=== PATIENT | male | born 1960 | race Two or more races ===

== ENCOUNTER 2018-01-12 00:32 | Emergency (ER) | payer MEDICARE, MEDICAID ==
[2018-01-12] MEDS ORDERED: NS 0.9% 1000 ML* 1,000 ML IV ONE (00:52)
[2018-01-12] MEDS ORDERED: Metoclopramide IV* 5 MG/ML 2 ML VIAL IV SLOW PU ONE (00:54)
[2018-01-12] MEDS ORDERED: Morphine VIAL* 10 MG/ML 1 ML VIAL IV ONE (00:55)
[2018-01-12] MEDS ORDERED: Hydrocortisone INJ* 100 MG VIAL IV ONE (00:56)
[2018-01-12 01:14] LABS: Hematocrit 37 % (42-52); Hemoglobin 11.4 g/dl (14.0-18.0); Mean Corpuscular HGB Conc 31 g/dl (31-36); Mean Corpuscular Hemoglobin 25 pg (27-31); Mean Corpuscular Volume 81 fL (80-94); Red Cell Distribution Width 19 % (10.5-15); White Blood Count 14.8 10^3/ul (3.5-10.8)
[2018-01-12 01:20] LABS: INR 1.02 (0.77-1.02)
[2018-01-12 01:30] LABS: EGFR Non-African American 44.3 (>60)
[2018-01-12 01:33] LABS: ABS Basophils 0.2 10^3/ul (0-0.2); ABS Eosinophils 0 10^3/ul (0-0.6); ABS Lymphocytes 1.1 10^3/ul (1.0-4.8); ABS Monocytes 0 10^3/ul (0-0.8); ABS Neutrophils 13.5 10^3/ul (1.5-7.7); ABS Nucleated RBC 0 10^3/ul; Mean Platelet Volume 9.7 um3 (7.4-10.4); Platelet Count 162 10^3/ul (150-450)
[2018-01-12 01:39] LABS: ABS Basophils 0.3 10^3/ul (0-0.2); Monocytes % 0 % (0-7)
--- NOTE | 2018-01-12 02:51 | ED ---
Abdominal Pain/Male - HPI Summary HPI Summary: This is jess Matsonin documenting for attending Dr. Chance Campo MD. A 81 y/o male presents to ED c/o abdominal pain reaching 8/10 in severity. As per triage, "Pt in with c/o n/v abd cramps. reported that pt was vomiting blood after pepto. pt has hx of kidney transplant in 2014". According to the patient' s daughter (translate), the patient has been sick for the past week with diarrhea (yellowish) and stomach cramps (abdominal pain). They just had returned yesterday from [place]. Pt denies any fever, however has vomiting. It was noted that the patient's vomiting episode 20 minutes ago had lots of blood in it. Patient had a transplant in 2014 of a kidney. Patient is currently on several medications. - History of Current Complaint Chief Complaint: EDNauseaVomitDiarrh Stated Complaint: VOMITING BLOOD Time Seen by Provider: 01/12/18 00:39 Hx Obtained From: Patient Onset/Duration: Sudden Onset, Lasting Weeks - 1 week, Still Present Timing: Constant Severity Initially: Severe Severity Currently: Severe Pain Intensity: 8 Pain Scale Used: 0-10 Numeric Radiates: No Character: Cramping Aggravating Factor(s): Nothing Alleviating Factor(s): Nothing Associated Signs And Symptoms: Positive: Vomiting, Diarrhea. Negative: Fever - Allergies/Home Medications Allergies/Adverse Reactions: Allergies Allergy/AdvReac Type Severity Reaction Status Date / Time No Known Allergies Allergy Verified 10/11/13 10:48 PMH/Surg Hx/FS Hx/Imm Hx Cardiovascular History: Reports: Hx Hypertension, Other Cardiovascular Problems/ Disorders - HTN Respiratory History: Reports: Other Respiratory Problems/Disorders - SOB occasionally, MD ordering test r/t chronic chest infiltrates GI History: Reports: Other GI Disorders - peritoneal dialysis History: Reports: Hx Chronic Renal Failure, Hx Dialysis - pt is aneuric, Hx Renal Disease - Pt on peritoneal dialysis 4x daily, Other Problems/Disorders - PT ON DIALYSIS HX OF GLOMERULONEPHRITIS - Surgical History Surgery Procedure, Year, and Place: Several surgeries involving peritoneal dialysis access, Infectious Disease History: No Infectious Disease History: Reports: Traveled Outside the [place] in Last 30 Days - [place] - Family History Known Family History: Negative: Diabetes - Social History Alcohol Use: None Substance Use Type: Reports: None Smoking Status (MU): Former Smoker Review of Systems Negative: Fever Positive: Abdominal Pain, Vomiting, Diarrhea All Other Systems Reviewed And Are Negative: Yes Physical Exam - Summary Physical Exam Summary: VITAL SIGNS: Reviewed. GENERAL: Patient is a well-developed and nourished male who is lying comfortable in the stretcher. Patient is not in any acute respiratory distress. HEAD AND FACE: No signs of trauma. No ecchymosis, hematomas or skull depressions. No sinus tenderness. EYES: PERRLA, EOMI x 2, No injected conjunctiva, no nystagmus. EARS: Hearing grossly intact. Ear canals and tympanic membranes are within normal limits. MOUTH: Oropharynx within normal limits. NECK: Supple, trachea is midline, no adenopathy, no JVD, no carotid bruit, no c- spine tenderness, neck with full ROM. CHEST: Symmetric, no tenderness at palpation LUNGS: Clear to auscultation bilaterally. No wheezing or crackles. CVS: Regular rate and rhythm, S1 and S2 present, no murmurs or gallops appreciated. ABDOMEN: Soft, no rebound no guarding, and no masses palpated. Abdomen is distended with diffuse tenderness. Hyperactive bowel sounds. EXTREMITIES: FROM in all major joints, no edema, no cyanosis or clubbing. NEURO: Alert and oriented x 3. No acute neurological deficits. Speech is normal and follows commands. SKIN: Dry and warm Triage Information Reviewed: Yes Vital Signs On Initial Exam: Initial Vitals Temp Pulse Resp BP Pulse Ox 97.1 F 82 20 149/66 95 01/12/18 00:34 01/12/18 00:34 01/12/18 00:34 01/12/18 00:34 01/12/18 00:34 Vital Signs Reviewed: Yes Diagnostics - Vital Signs Vital Signs Temp Pulse Resp BP Pulse Ox 01/12/18 02:02 20 01/12/18 00:34 97.1 F 82 20 149/66 95 - Laboratory Lab Results: Lab Results 01/12/18 01/12/18 01/12/18 Range/Units 00:59 00:59 00:59 WBC 14.8 H (3.5-10.8) 10^3/ul RBC 4.50 (4.00-5.40) 10^6/ul Hgb 11.4 L (14.0-18.0) g/dl Hct 37 L (42-52) % MCV 81 (80-94) fL MCH 25 L (27-31) pg MCHC 31 (31-36) g/dl RDW 19 H (10.5-15) % Plt Count 162 (150-450) 10^3/ul MPV 9.7 (7.4-10.4) um3 Neut % (Auto) Not Reportable Lymph % (Auto) Not Reportable [place] % (Auto) Not Reportable Eos % (Auto) Not Reportable Baso % (Auto) Not Reportable Absolute Neuts (auto) 13.5 H (1.5-7.7) 10^3/ul Absolute Lymphs (auto) 1.1 (1.0-4.8) 10^3/ul Absolute Monos (auto) 0 (0-0.8) 10^3/ul Absolute Eos (auto) 0 (0-0.6) 10^3/ul Absolute Basos (auto) 0.2 (0-0.2) 10^3/ul Absolute Nucleated RBC 0 10^3/ul Immature Gran % 31 H (0-9) % Neutrophils % 61 (38-83) % Band Neutrophils % 30 H (0-8) % Lymphocytes % 5 L (25-47) % Reactive Lymphs % 1 (0-6) % Monocytes % 0 (0-7) % Eosinophils % 0 (0-6) % Basophils % 2 (0-2) % Myelocytes % 1 (0-1) % Nucleated RBC % Not Reportable Abs Neuts (Manual) 9.0 H (1.5-7.7) 10^3/ul Abs Lymphs (Manual) 0.7 L (1.0-4.8) 10^3/ul Abs Monocytes (Manual) 0 (0-0.8) 10^3/ul Absolute Eos (Manual) 0 (0-0.6) 10^3/ul Abs Basophils (Manual) 0.3 H (0-0.2) 10^3/ul Normal RBC Morphology Not Reportable Anisocytosis 1+ INR (Anticoag Therapy) 1.02 (0.77-1.02) APTT 27.2 (26.0-36.3) seconds Sodium 140 (135-145) mmol/L Potassium 3.8 (3.5-5.0) mmol/L Chloride 111 (101-111) mmol/L Carbon Dioxide 20 L (22-32) mmol/L Anion Gap 9 (2-11) mmol/L BUN 27 H (6-24) mg/dL Creatinine 1.62 H (0.67-1.17) mg/dL Est GFR ( Amer) 53.6 (>60) Est GFR (Non-Af Amer) 44.3 (>60) BUN/Creatinine Ratio 16.7 (8-20) Glucose 128 H (70-100) mg/dL Lactic Acid (0.5-2.0) mmol/L Calcium 9.3 (8.6-10.3) mg/dL Magnesium 2.0 (1.9-2.7) mg/dL Total Bilirubin 0.40 (0.2-1.0) mg/dL AST 15 (13-39) U/L ALT 27 (7-52) U/L Alkaline Phosphatase 59 (34-104) U/L C-Reactive Protein 2.22 (<8.01) mg/L Total Protein 6.2 L (6.4-8.9) g/dL Albumin 3.9 (3.2-5.2) g/dL Globulin 2.3 (2-4) g/dL Albumin/Globulin Ratio 1.7 (1-3) Amylase 44 (29-103) U/L Lipase 26 (11.0-82.0) U/L 01/12/18 Range/Units 00:59 WBC (3.5-10.8) 10^3/ul RBC (4.00-5.40) 10^6/ul Hgb (14.0-18.0) g/dl Hct (42-52) % MCV (80-94) fL MCH (27-31) pg MCHC (31-36) g/dl RDW (10.5-15) % Plt Count (150-450) 10^3/ul MPV (7.4-10.4) um3 Neut % (Auto) Lymph % (Auto) [place] % (Auto) Eos % (Auto) Baso % (Auto) Absolute Neuts (auto) (1.5-7.7) 10^3/ul Absolute Lymphs (auto) (1.0-4.8) 10^3/ul Absolute Monos (auto) (0-0.8) 10^3/ul Absolute Eos (auto) (0-0.6) 10^3/ul Absolute Basos (auto) (0-0.2) 10^3/ul Absolute Nucleated RBC 10^3/ul Immature Gran % (0-9) % Neutrophils % (38-83) % Band Neutrophils % (0-8) % Lymphocytes % (25-47) % Reactive Lymphs % (0-6) % Monocytes % (0-7) % Eosinophils % (0-6) % Basophils % (0-2) % Myelocytes % (0-1) % Nucleated RBC % Abs Neuts (Manual) (1.5-7.7) 10^3/ul Abs Lymphs (Manual) (1.0-4.8) 10^3/ul Abs Monocytes (Manual) (0-0.8) 10^3/ul Absolute Eos (Manual) (0-0.6) 10^3/ul Abs Basophils (Manual) (0-0.2) 10^3/ul Normal RBC Morphology Anisocytosis INR (Anticoag Therapy) (0.77-1.02) APTT (26.0-36.3) seconds Sodium (135-145) mmol/L Potassium (3.5-5.0) mmol/L Chloride (101-111) mmol/L Carbon Dioxide (22-32) mmol/L Anion Gap (2-11) mmol/L BUN (6-24) mg/dL Creatinine (0.67-1.17) mg/dL Est GFR ( Amer) (>60) Est GFR (Non-Af Amer) (>60) BUN/Creatinine Ratio (8-20) Glucose (70-100) mg/dL Lactic Acid 0.7 (0.5-2.0) mmol/L Calcium (8.6-10.3) mg/dL Magnesium (1.9-2.7) mg/dL Total Bilirubin (0.2-1.0) mg/dL AST (13-39) U/L ALT (7-52) U/L Alkaline Phosphatase (34-104) U/L C-Reactive Protein (<8.01) mg/L Total Protein (6.4-8.9) g/dL Albumin (3.2-5.2) g/dL Globulin (2-4) g/dL Albumin/Globulin Ratio (1-3) Amylase (29-103) U/L Lipase (11.0-82.0) U/L Result Diagrams: 01/12/18 00:59 01/12/18 00:59 Lab Statement: Any lab studies that have been ordered have been reviewed, and results considered in the medical decision making process. - CT CT A/P CT Interpretation Completed By: Radiologist - 1. There may be cholelithiasis without pericholecystic inflammatory change. 2. No other acute CT pathology. ED physician reviewed this radiology report. Re-Evaluation - Re-Evaluation First Eval Re-Evaluation Time: 02:27 Change: Improved Comment: Patient feels better now. No diarrhea, nausea, pain and vomiting. Reviewed CAT scans. Abdominal Pain Fem Course/Dx - Course Course Of Treatment: A 81 y/o male presents to ED c/o abdominal pain reaching 8/ 10 in severity. Patient has liquid cytosis due to taking Prendenzone. A CT A/P revealed 1. There may be cholelithiasis without pericholecystic inflammatory change. 2. No other acute CT pathology. In the ED course, the patient recieved Reglan, Solu-Cortef, Morphine and IV fluids. During reevaluation, the patient feels better now as he had no diarrhea, nausea, pain and vomiting. Patient will be discharged home with a diagnosis of cholelithiasis with pain medications. Patient is to follow up with surgeon. Pt is agreeable with this plan. - Diagnoses Provider Diagnoses: Cholelithiasis Discharge - Sign-Out/Discharge Documenting (check all that apply): Patient Departure - DISCHARGE - Discharge Plan Condition: Stable Disposition: HOME Prescriptions: Metoclopramide TAB* [Reglan TAB*] 10 mg PO Q6H PRN #20 tab PRN Reason: Nausea/Vomiting oxyCODONE/Acetamin 5/325 MG* [Percocet 5/325 TAB*] 1 tab PO Q6H PRN #14 tab MDD 4 PRN Reason: Pain Patient Education Materials: Gallstones (ED) Referrals: Anette Sol MD [Primary Care Provider] - 2 Days Fabio Alexandra MD [Medical Doctor] - 2 Days Additional Instructions: RETURN TO ED FOR ANY NEW OR WORSENING SYMPTOMS.
[2018-01-12 04:17] VITALS: BP 136/62
--- NOTE | 2018-01-12 08:03 | RAD ---
CLINICAL HISTORY: Abdominal pain and emesis. The patient has a history of renal transplant in 2015. COMPARISON: Multiple prior CT examinations, most recently dated November 30, 2013 TECHNIQUE: Noncontrast CT examination of the abdomen and pelvis from the lung bases through the initial tuberosities. FINDINGS: VISUALIZED LUNG BASES: The visualized lung bases are grossly clear. There is no pleural effusion. ABDOMEN AND PELVIS: Evaluation of the solid organs and vasculature is limited without intravenous contrast. The homogenously attenuating spleen measures 13.4 cm in greatest axial dimension. The liver, pancreas and adrenal glands are grossly normal in appearance. Hyperattenuating material in the dependent portion of the gallbladder is most consistent with gallstones. The [place] kidneys are atrophic bilaterally. There is a right lower quadrant renal transplant. At the lower pole of the transplant kidney there is a 1.3 cm hyperattenuating nodule. More superiorly there is a similar hyperattenuating nodule at the mid-level kidney measuring 7 mm. Evaluation of the gastrointestinal tract is limited in the absence of oral contrast. The small and large bowel are not distended.The patient's normal appendix is identified in the right lower quadrant measuring 6 mm in diameter (axial image 115). There is no gross retroperitoneal or mesenteric lymphadenopathy. The pelvic viscera is normal in appearance. There is coarsely calcified atherosclerosis of the abdominal aorta extending into the iliac arteries. Degenerative changes include multilevel loss of intervertebral disc height involving the lower thoracic and lumbar spine.There are no sinister bone lesions. IMPRESSION: 1. Likely cholelithiasis without CT evidence of biliary obstruction or acute inflammatory change. 2. There are at least 2 hyperattenuating nodules at the right lower quadrant transplant kidney, possibly hemorrhagic cyst. Further characterization of the kidney can be made with nonemergent ultrasound. 3. No CT apparent inflammatory change of the gastrointestinal tract, though evaluation is limited in the absence of oral contrast. 4. Stable mild splenomegaly.
== END 2018-01-12 03:16 | disposition home or self-care (01) ==
LOC: ED 00:32
DX: K80.20 Calculus of gallbladder without cholecystitis without obstruction (principal); Z94.0 Kidney transplant status; Z99.2 Dependence on renal dialysis; Z87.891 Personal history of nicotine dependence
CPT/HCPCS: 36415; 74176; 80053; 82150; 83605; 83690; 83735; 85025; 85610; 85730; 86140; 96361; 96374; 96375; 99283; J1720; J2270; J2765